=== PATIENT | female | born 1970 | race Two or more races ===

== ENCOUNTER 2021-07-17 11:27 | Outpatient (CLI) | payer OTHER | END 2021-07-17 11:39 | disposition home or self-care (01) | LOC: SONOGRAMA 11:27 | DX: R10.2 Pelvic and perineal pain (principal) ==

== ENCOUNTER 2022-05-28 09:42 | Outpatient (CLI) | payer OTHER | END 2022-05-28 09:52 | disposition home or self-care (01) | LOC: RAD 09:42 | DX: M20.12 Hallux valgus (acquired), left foot (principal); M20.11 Hallux valgus (acquired), right foot ==